=== PATIENT | male | born 1985 | race Caucasian/White ===

== ENCOUNTER 2017-03-19 05:11 | Inpatient (IN) | payer SELFPAY ==
[2017-03-07 11:10] VITALS: BP 142/70; PULSE 62; RESP 17; TEMP 36.6; O2SAT 97; BMI 41.7
[2017-03-07 12:20] LABS: Anion Gap 7 (5-15); BUN 15 mg/dL (7-18); BUN/Creat Ratio 18.6 RATIO (10-20); Calcium,Total 8.9 mg/dL (8.5-10.1); Chloride 106 mmol/L (98-107); Creatinine, Serum 0.81 mg/dL (0.70-1.30); EST Glomerular Filtration Rate 117 mL/min (>60); Est Glom Filt Rate - Afr Amer 141 mL/min (>60); Estimated Creatinine Clearance 117.05 ml/min; Glucose 103 mg/dL (70-110); Potassium 3.8 mmol/L (3.5-5.1); Sodium Level 138 mmol/L (136-145)
[2017-03-07 12:25] LABS: Absolute Lymphocyte Count 1.98 X10^3/ul (0.83-4.51); Absolute Neutrophil Count 3.4 X10^3/uL (2.0-7.7); Basophil# 0.03 X10^3/uL; Basophil% 0.5 % (0-1); Eosinophil# 0.13 X10^3/uL; Eosinophils% 2.2 % (0-5); Hematocrit 42.5 % (40-54); Hemoglobin 14.4 g/dl (13.0-16.5); Lymphocyte # 1.98 X10^3/ul (4.0); Lymphocyte % 33.6 % (19-41); Mean Corp Hgb Conc 33.9 g/gl (32-36); Mean Corpuscular Hgb 29.1 pg (27.0-32.0); Mean Corpuscular Volume 85.9 fL (80-94); Mean Platelet Vol. 9.6 fl (6.2-12.0); Monocyte# 0.37 X10^3/uL; Monocyte% 6.3 % (0-10); Neutrophil # 3.37 X10^3/uL (2.7-7.7); Neutrophil % 57.2 % (47-70); Platelet Count 196 K/mm3 (150-450); RBC Distribution Width CV 12.3 % (11.6-14.6); RBC Distribution Width SD 38.3 fl (35.1-43.9); Red Blood Count 4.95 M/mm3 (4.6-6.2); White Blood Count 5.9 K/mm3 (4.4-11.0)
[2017-03-07 12:27] LABS: POSITIVE COUNT NO; POSITIVE DIFFERENTIAL NO; POSITIVE MORPHOLOGY NO
--- NOTE | 2017-03-07 12:46 | PCM.HP.BLA ---
History and Physical DATE OF SERVICE: 03/19/2017 SCHEDULED PROCEDURE: Right total hip arthroplasty HISTORY OF PRESENT ILLNESS: This is a 31-year-old male who is been having ongoing pain for several year duration in the right hip. Patient was seen over 1 year ago and hip pain has continued and become worse. Pain can reach as high as a 6 out of 10. Pain is constant, aching, sharp, and stabbing. Patient has any pain with any use with forward flexion of the hip. He has difficult time with activities of daily living including putting his shoes and getting dressed due to the pain. Patient does have start up pain. Patient states he has difficult time at work due to the pain. 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 This prevents him from doing activities of daily living. He has tried oral medications with no relief in symptoms. X-rays do show signs of avascular necrosis. Patient has no medical problems. He denies any chest pain, shortness of breath, fevers chills, or recent infections. Patient has had corticosteroid injection into the right hip in September 2016 with no significant relief in symptoms. After failing conservative measures and discussing all treatment options with Dr. Escalante, the patient would like to proceed with a right total hip arthroplasty. Patient will be obtaining surgical clearance from his primary care physician. REVIEW OF SYSTEMS: ROS: Const: Denies change in appetite, fever,or weight change. CV: Denies chest pain, heart murmur and irregular heartbeat. Resp: Denies cough, pneumonia, SOB, tuberculosis and wheezing. GI: Reports heartburn, but denies constipation, diarrhea, difficulty swallowing, nausea, bloody stools and vomiting. : . (F Genital Sx) Urinary: denies incontinence. Musculo: Denies leg swelling, limp, trouble walking and weakness. Skin: Denies Raynaud's, history of shingles and tattoo. Neuro: Denies ambulatory dysfunction, dizziness, numbness/tingling and tremor. Psych: Denies anxiety, insomnia and stress. Sai/Lymph: Denies anemia, bleeding/bruising tendency and past transfusion. Reviewed, no changes. PAST MEDICAL HISTORY: Advance Care Plan: PMH: Medical Problems: No Current Problems Accidents: None Surgical Hx: None Anesthesia Complications: None Assistive Devices: Glasses Reviewed, no changes. SOCIAL HISTORY: SH: Marital: .Occupation: Currently Working - [employer].Work Status: Currently Working.Hand Dominance: Right-handed. Personal Habits: Cigarette Use: Former Cigarette Smoker.Alcohol: Has consumed alcohol in the past.Drug Use: Denies Use.Enjoy Exercising: Daily. Reviewed, no changes. VITALS: Ht: 66.5 Wt: 255lb Wt k.668 BMI: 40.5 BP: 124/76 Pulse: 70 Resp: 16 T: 98.2 T: 36.8C ALLERGIES: No Known Drug Allergy MEDICATIONS: Ibuprofen 600 mg 1 by mouth three times a day PRE-OP EXAM: General appearance:NORMAL Other: Eyes: Conjunctivae and lids: NORMAL Pupils: ERR Ears, Nose, Mouth, and Throat: NORMAL Other: Inspection of lips, teeth and gums: NORMAL Other: Neck: Examination of neck: no masses noted. Respiratory: Assessment of respiratory effort: NORMAL Other: Ausculation of lungs: clear to ausculation no wheeses, ronchi or rales. Cardiovascular: Ausculation of heart: regular rate and rhythem, no mummurs, gallops or rubs. Exam of carotid arteries: NORMAL Other: Gastrointestinal: Exam of abdomen: soft, nontender, nondistended bowel sounds present. Lymphatic: Palpation of nodes in neck: NORMAL Other: Palpation of nodes in Axillae: NORMAL Other: Neurological: see below Psychiatric: Orientation to time, place and person: NORMAL Other: Mood and affect: NORMAL Other: PHYSICAL EXAMINATION: Patient walks with a limping gait. Range of motion is flexion to 45?, internal rotation to 5?, external rotation to 10?. Patient has decreased strength with the right hip. Sensations intact to light touch and neurovascularly intact. IMAGING STUDIES: X-rays were obtained at [facility] [place] on March 07, 2017 including 2 views AP pelvis and AP right hip reveal severe right hip osteoarthritis with narrowing in the weightbearing area. There is large osteophytes on the femoral head and lateral acetabulum. Femoral head appears to be flattened. IMPRESSION: 1. Right hip pain with osteoarthritis and evidence of avascular necrosis PLAN: Dr. Escalante did discuss and review with the patient all treatment options including surgical versus nonsurgical. Patient wishes to proceed with above-stated procedure. Potential risks, benefits, and complications of this procedure were discussed in detail including but not limited to , infection, nerve and blood vessel damage, persistent pain, numbness, tingling, paresthesias, blood clot, pulmonary embolism, and requirement for further surgery. The patient expressed full understanding has no further questions for the doctor. Patient does agree to proceed with the above-stated procedure and has signed the surgery consent form. ___ I have re-examined the patient. There are no clinical changes since date of exam. ___ See progress notes for changes. ___ Dictated on admission Date: Time: Signature:
--- NOTE | 2017-03-07 12:55 | HP.PCM_ITS ---
History and Physical DATE OF SERVICE: 03/19/2017 SCHEDULED PROCEDURE: Right total hip arthroplasty HISTORY OF PRESENT ILLNESS: This is a 31-year-old male who is been having ongoing pain for several year duration in the right hip. Patient was seen over 1 year ago and hip pain has continued and become worse. Pain can reach as high as a 6 out of 10. Pain is constant, aching, sharp, and stabbing. Patient has any pain with any use with forward flexion of the hip. He has difficult time with activities of daily living including putting his shoes and getting dressed due to the pain. Patient does have start up pain. Patient states he has difficult time at work due to the pain. 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 This prevents him from doing activities of daily living. He has tried oral medications with no relief in symptoms. X-rays do show signs of avascular necrosis. Patient has no medical problems. He denies any chest pain, shortness of breath, fevers chills, or recent infections. Patient has had corticosteroid injection into the right hip in September 2016 with no significant relief in symptoms. After failing conservative measures and discussing all treatment options with Dr. Escalante, the patient would like to proceed with a right total hip arthroplasty. Patient will be obtaining surgical clearance from his primary care physician. REVIEW OF SYSTEMS: ROS: Const: Denies change in appetite, fever,or weight change. CV: Denies chest pain, heart murmur and irregular heartbeat. Resp: Denies cough, pneumonia, SOB, tuberculosis and wheezing. GI: Reports heartburn, but denies constipation, diarrhea, difficulty swallowing , nausea, bloody stools and vomiting. : . (F Genital Sx) Urinary: denies incontinence. Musculo: Denies leg swelling, limp, trouble walking and weakness. Skin: Denies Raynaud's, history of shingles and tattoo. Neuro: Denies ambulatory dysfunction, dizziness, numbness/tingling and tremor. Psych: Denies anxiety, insomnia and stress. Sai/Lymph: Denies anemia, bleeding/bruising tendency and past transfusion. Reviewed, no changes. PAST MEDICAL HISTORY: Advance Care Plan: PMH: Medical Problems: No Current Problems Accidents: None Surgical Hx: None Anesthesia Complications: None Assistive Devices: Glasses Reviewed, no changes. SOCIAL HISTORY: SH: Marital: .Occupation: Currently Working - [employer].Work Status: Currently Working.Hand Dominance: Right-handed. Personal Habits: Cigarette Use: Former Cigarette Smoker.Alcohol: Has consumed alcohol in the past.Drug Use: Denies Use.Enjoy Exercising: Daily. Reviewed, no changes. VITALS: Ht: 66.5 Wt: 255lb Wt k.668 BMI: 40.5 BP: 124/76 Pulse: 70 Resp: 16 T: 98.2 T: 36.8C ALLERGIES: No Known Drug Allergy MEDICATIONS: Ibuprofen 600 mg 1 by mouth three times a day PRE-OP EXAM: General appearance:NORMAL Other: Eyes: Conjunctivae and lids: NORMAL Pupils: ERR Ears, Nose, Mouth, and Throat: NORMAL Other: Inspection of lips, teeth and gums: NORMAL Other: Neck: Examination of neck: no masses noted. Respiratory: Assessment of respiratory effort: NORMAL Other: Ausculation of lungs: clear to ausculation no wheeses, ronchi or rales. Cardiovascular: Ausculation of heart: regular rate and rhythem, no mummurs, gallops or rubs. Exam of carotid arteries: NORMAL Other: Gastrointestinal: Exam of abdomen: soft, nontender, nondistended bowel sounds present. Lymphatic: Palpation of nodes in neck: NORMAL Other: Palpation of nodes in Axillae: NORMAL Other: Neurological: see below Psychiatric: Orientation to time, place and person: NORMAL Other: Mood and affect: NORMAL Other: PHYSICAL EXAMINATION: Patient walks with a limping gait. Range of motion is flexion to 45?, internal rotation to 5?, external rotation to 10?. Patient has decreased strength with the right hip. Sensations intact to light touch and neurovascularly intact. IMAGING STUDIES: X-rays were obtained at [facility] [place] on March 07, 2017 including 2 views AP pelvis and AP right hip reveal severe right hip osteoarthritis with narrowing in the weightbearing area. There is large osteophytes on the femoral head and lateral acetabulum. Femoral head appears to be flattened. IMPRESSION: 1. Right hip pain with osteoarthritis and evidence of avascular necrosis PLAN: Dr. Escalante did discuss and review with the patient all treatment options including surgical versus nonsurgical. Patient wishes to proceed with above- stated procedure. Potential risks, benefits, and complications of this procedure were discussed in detail including but not limited to , infection , nerve and blood vessel damage, persistent pain, numbness, tingling, paresthesias, blood clot, pulmonary embolism, and requirement for further surgery. The patient expressed full understanding has no further questions for the doctor. Patient does agree to proceed with the above-stated procedure and has signed the surgery consent form. ___ I have re-examined the patient. There are no clinical changes since date of exam. ___ See progress notes for changes. ___ Dictated on admission Date: Time: Signature:
[2017-03-19] VITALS (10 sets, daily range): BP systolic 100–135; BP diastolic 51–72; PULSE 50–76; RESP 16–18; TEMP 36.1–37.2; O2SAT 96–100; BMI 41.7
[2017-03-19] MEDS: oxyCODONE HCl Cr 10 MG Tablet PO (05:53)
[2017-03-19] MEDS: Celecoxib 200 MG Capsule 400 MG PO (05:53)
[2017-03-19] MEDS: Acetaminophen 500 MG Tablet 1000 MG PO ×3 (05:53→22:28)
[2017-03-19] MEDS: Lactated Ringers 1,000 ML 999 ML IV (06:30)
--- NOTE | 2017-03-19 07:04 | RAD_ITS ---
STUDY: X-RAY - PELVIS AND right HIP REASON FOR EXAM: Male, 31 years old. Total hip replacement. TECHNIQUE: Radiological exam, hip, unilateral, with pelvis when performed; 2 or 3 views. COMPARISON: None. FINDINGS: Postoperative soft tissue changes. There are multiple calcified phleboliths. Normal bilateral iliac wings, sacroiliac joints and visualized sacrum. Normal bilateral superior and inferior pubic rami. Normal pubic symphysis. Normal bilateral ischial tuberosities. Status post right total hip replacement. There is good alignment. RAD/Hip Min 2 Views (Portable) IMPRESSION: Status post right total hip replacement. There is good alignment. Electronically Signed: Biju Kaplan MD at 12:39 EST Tel [phone], Service support ,
[2017-03-19] MEDS: Cefazolin 2 GM in 0.9% Normal Saline 100 ML IV (07:08)
--- NOTE | 2017-03-19 09:50 | RAD_ITS ---
STUDY: X-RAY - PELVIS AND RIGHT HIP REASON FOR EXAM: Male, 31 years old. Right hip replacement. TECHNIQUE: Radiological exam, hip, unilateral, with pelvis when performed; 1 view COMPARISON: None. FINDINGS: Fluoroscopic images provided for right hip replacement. RAD/Hip 1 view with Pelvis IMPRESSION: Status post right hip replacement. There is good alignment. Electronically Signed: Biju Kaplan MD at 12:17 EST Tel [phone], Service support ,
[2017-03-19] MEDS: Scopolamine 1mg/72hr Patch 1 PATCH TD (10:41)
--- NOTE | 2017-03-19 11:29 | OP.PCM_ITS ---
Report of Operation Date of Procedure: 03/19/17 Pre-Operative Diagnosis: Right hip secondary osteoarthritis, overweight Post-Operative Diagnosis: Right hip secondary osteoarthritis, overweight Surgery/Procedure Performed:: Right direct anterior total hip replacement Description of Surgical Findings:: Stable hip with equal leg length director financial planning: Frieda Ren Type of Anesthesia:: Spinal Anesthesiologist: Karl Sheffield Special Medications: 2 g Ancef, 1 g TXA at incision, 1 g TXA closure, 10 mg Decadron, joint cocktail (5 mg Duramorph, 30 mL of 0.5% Ropivicaine, 1000 units of epinephrine, 30 mg of Toradol), a second dose of Ancef was given to half hours after initial incision Specimen's removed: Bony cuts Estimated Blood Loss (mL): 250 Fluids Replaced: 2 L crystalloid Description of Procedure: Components used: 1. Accolade 2 Mk femoral stem size 4 127? 2. Mk trident acetabular shell size 58 mm 3. Mk X3 polyethylene MDM size 46F 4. Mascot Biolox delta 28mm, -4mm femoral head 5. Mascot MDM liner alpha code F Brief history operative indications: 31 yo m who failed conservative measures for their hip osteoarthritis. X-rays were consistent with osteoarthritis including joint space narrowing, osteophyte formation and subchondral cysts. 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 Total hip replacement was discussed with the patient with risks and benefits including but not limited to blood loss, DVTs, PEs, neurovascular damage, dislocation, general risks of anesthesia including loss of life. Patient demonstrated an understanding medical clearance is obtained the patient was consented for surgery. Procedure: On the date of procedure the patient's R hip was marked in the preoperative area. Patient was then taken back to the operating room where anesthesia assumed control of the C-spine and airway and administered anesthetic. Patient was transferred to the operating table and placed in the supine position. The hips were placed at the break of the bed and a sacral bump was placed. The R lower extremity was then prepped out in a sterile fashion using chlorhexidine while the surgeon scrubbed. The PA was vital in the positioning of the patient. Upon reentering the room the R lower extremity was draped in the standard orthopedic fashion and the incision was marked. A timeout was called and everyone agreed upon the side, the site, the procedure be performed, antibody given, and patient's identity. At this time incision was made through skin, subcutaneous tissue, and fat down to fascia. The fascia was then incised and the TFL was retracted laterally. A retractor was placed on the lateral border of the femoral neck. Attention was directed to the inferior portion of the approach and all crossing vessels were identified and appropriately coagulated. A retractor was then placed on the medial portion of the femoral neck. The anterior capsule was then cleared of all soft tissue and then H shaped capsulotomy was made. The retractors were then placed inside the capsule. The femoral neck was identified and a cleanup cut was made. At this time a power corkscrew was used to remove the femoral head. Attention was then turned toward the acetabulum where the soft tissues were appropriately retracted and the acetabulum was sequentially reamed to 57 mm. A 58 mm cup was then selected and impacted into place. Acetabular liner was impacted into place and locking mechanism was verified. The position of the acetabular cup was then verified under live fluoroscopy. Attention was then turned to the femur. Soft tissue releases on the medial and lateral femoral neck were appropriately done, the leg was externally rotated and lateralized. A Jamil retractor was placed medially and proximally to the greater trochanter this allowed appropriate visualization and exposure of the femoral canal. Rongeour was then used to remove excess lateral bone. A canal finder and entry broach were used to open the proximal canal. Once we verified we were down the femoral canal we subsequently broached up to a size 4 femur. The appropriate neck was placed in the previously selected head was trialed with a -5 mm neck. Traction was pulled and the hip was reduced with internal rotation. Once it was appropriately reduced and stability was checked. There was minimal shuck however, at this time patient had slight increase in right lower extremity length compared to the left as well as instability with hyperextension. At this time the hip was dislocated trial femoral neck was removed femoral component was further broached. We also remove the acetabular liner and repositioned the acetabulum using live fluoroscopy to obtain the appropriate position. Initially 2 screws were placed however we obtained good fixation and no additional screws are placed after removing them to change the position of the cup. Once we did this and MDM liner was then selected for stability. MDM liner was then placed and appropriately seated. Trial components were then placed once more with a -4 MDM femoral head. Fluoroscopy was then also used to verify the position of the components and leg lengths using the contralateral side for comparison. The trial components were then dislocated the proximal femur was again exposed and the components were removed from the wound. The final components were verified and opened. The wound was copiously irrigated out with normal saline. The acetabulum was checked for any residual debris. The final components were placed and impacted. Traction and internal rotation were again used to reduce the hip. After adequate reduction the hip remained stable with appropriate leg lengths. The final components were once again checked with live fluoroscopy and were found to be satisfactory. The wound was then copiously irrigated with normal saline once more, and hemostasis was obtained. Closure was then done using #1 Vicryl runner to close the fascia. A 2-0 vicryl interuppted sutures were used to close the subcutaneous skin. A 3-0 Monocryl and Steri-Strips were used for final skin closure. A Silverlon dressing was placed. Patient was awakened by anesthesia and transferred to the [facility]. Patient was then transferred to the PACU for recovery. Postoperative plan: Patient will get 24 hours postop antibiotics. Patient will get in-house physical therapy and will be weight-bear as tolerated. Patient will follow up in office in 2 weeks for a wound check and x-rays. Grafts/Implants Used: Mascot accolade 2, MDM liner - Complications none - Admit VTE Documentation VTE Present on Admission: No VTE Mechan Device Prophylaxis: SCD's, Thigh High MEG Hose VTE Pharm Prophylaxis ordered?: Yes
[2017-03-19] MEDS: Lactated Ringers 1,000 ML 125 ML IV ×2 (12:34→16:10)
[2017-03-19] MEDS: Famotidine 20 MG Tablet PO (12:34)
[2017-03-19] MEDS: Senna/Docusate Sodium 1 Tablet 2 TABLET PO ×2 (12:34→22:29)
[2017-03-19] MEDS: oxyCODONE 5 MG Tablet PO ×3 (13:27→22:32)
[2017-03-19] MEDS: Cefazolin 1 GM/50 ML BAG IV ×2 (16:03→22:28)
[2017-03-19] MEDS: Aspirin 325 MG Tablet PO (16:08)
[2017-03-19] MEDS: Ketorolac 15 MG/ML Vial IV (18:03)
[2017-03-20 02:39] VITALS: BP 126/61; PULSE 66; RESP 16; TEMP 36.8; O2SAT 98
[2017-03-20] MEDS: Acetaminophen 500 MG Tablet 1000 MG PO ×2 (06:20→13:53)
[2017-03-20 06:38] LABS: Hemoglobin 9.8 g/dl (13.0-16.5); Mean Corpuscular Hgb 29.8 pg (27.0-32.0); Mean Corpuscular Volume 85.1 fL (80-94); Mean Platelet Vol. 10.1 fl (6.2-12.0); Platelet Count 177 K/mm3 (150-450); RBC Distribution Width CV 12.2 % (11.6-14.6); RBC Distribution Width SD 36.3 fl (35.1-43.9); Red Blood Count 3.29 M/mm3 (4.6-6.2)
[2017-03-20 06:46] LABS: Scan Indicated on CBC? Y/N NO
[2017-03-20 07:12] LABS: Anion Gap 9 (5-15); BUN 15 mg/dL (7-18); BUN/Creat Ratio 18.6 RATIO (10-20); Calcium,Total 8.2 mg/dL (8.5-10.1); Chloride 107 mmol/L (98-107); EST Glomerular Filtration Rate 117 mL/min (>60); Est Glom Filt Rate - Afr Amer 142 mL/min (>60); Estimated Creatinine Clearance 118.52 ml/min; Glucose 137 mg/dL (70-110); Sodium Level 139 mmol/L (136-145)
[2017-03-20 07:31] VITALS: BP 117/55; PULSE 59; RESP 16; TEMP 37.1; O2SAT 100
[2017-03-20] MEDS: Famotidine 20 MG Tablet PO (07:37)
[2017-03-20] MEDS: Senna/Docusate Sodium 1 Tablet 2 TABLET PO (07:37)
[2017-03-20] MEDS: Aspirin 325 MG Tablet PO (07:37)
--- NOTE | 2017-03-20 11:14 | PCM.PN.ORT ---
Subjective: The patient was sitting in bed upon examination. Patient denies any chest pain, shortness of breath, dizziness, lightheadedness, nausea or vomiting, or calf pain. Pain is controlled on medications. No adverse overnight events. Patient states he is feeling well and has tolerated therapy and walking. Patient is wishing to go home today. Objective: Vital signs stable and afebrile. Patient is able to plantarflex and dorsiflex actively. Sensation is intact to light touch to saphenous, sural, superficial and deep peroneal, and tibial distribution. Dressing is clean dry and intact. Negative Homans bilaterally, negative signs and symptoms of DVT. - Physical Exam General: Alert, Oriented x3, Cooperative, No apparent distress Vital Signs Temp Pulse Resp BP Pulse Ox 98.7 F 59 L 16 117/55 L 100 03/20/17 07:31 03/20/17 07:31 03/20/17 07:31 03/20/17 07:31 03/20/17 07:31 Oxygen Flow Rate 2 Oxygen Delivery Method Room Air Weight: 117.3 kg Body Mass Index (BMI) 41.7 Intake and Output for Last 24 Hours 03/18/17 03/19/17 03/20/17 23:59 23:59 23:59 Intake Total 3955 / 3955 2105 / 2105 Output Total 700 / 700 2150 / 2150 Balance 3255 / 3255 -45 / -45 Laboratory Tests Past 24 Hrs 03/20/17 03/20/17 05:42 05:42 WBC 11.0 RBC 3.29 L Hgb 9.8 L Hct 28.0 L MCV 85.1 MCH 29.8 MCHC 35.0 RDW 12.2 RDW Differential 36.3 Plt Count 177 MPV 10.1 Sodium 139 Potassium 4.0 Chloride 107 Carbon Dioxide 23.0 Anion Gap 9 BUN 15 Creatinine 0.80 Estim Creat Clear Calc 118.52 Est GFR (MDRD) Af Amer 142 Est GFR (MDRD) Non-Af 117 BUN/Creatinine Ratio 18.6 Glucose 137 H Calcium 8.2 L Assessment/Plan 1. S/P right total hip arthroplasty POD #1 2. Continue Pain Medications: Tylenol and OxyIR 3. DVT Prophylaxis: Aspirin 325 mg twice daily 4. PT/OT: Weightbearing as tolerated 5. H & H: 9.8/28.0, asymptomatic 6. Encouraged Incentive Spirometry 7. Disposition: Orthopedically stable, plan will be for discharge home today. Prescriptions will be E scribed to [facility]. Patient will follow-up per postop instructions.
--- NOTE | 2017-03-20 11:17 | PN.ORTHO_ITS ---
Subjective: The patient was sitting in bed upon examination. Patient denies any chest pain , shortness of breath, dizziness, lightheadedness, nausea or vomiting, or calf pain. Pain is controlled on medications. No adverse overnight events. Patient states he is feeling well and has tolerated therapy and walking. Patient is wishing to go home today. Objective: Vital signs stable and afebrile. Patient is able to plantarflex and dorsiflex actively. Sensation is intact to light touch to saphenous, sural, superficial and deep peroneal, and tibial distribution. Dressing is clean dry and intact. Negative Homans bilaterally, negative signs and symptoms of DVT. - Physical Exam General: Alert, Oriented x3, Cooperative, No apparent distress Vital Signs Temp Pulse Resp BP Pulse Ox 98.7 F 59 L 16 117/55 L 100 03/20/17 07:31 03/20/17 07:31 03/20/17 07:31 03/20/17 07:31 03/20/17 07:31 Oxygen Flow Rate 2 Oxygen Delivery Method Room Air Weight: 117.3 kg Body Mass Index (BMI) 41.7 Intake and Output for Last 24 Hours 03/18/17 03/19/17 03/20/17 23:59 23:59 23:59 Intake Total 3955 / 3955 2105 / 2105 Output Total 700 / 700 2150 / 2150 Balance 3255 / 3255 -45 / -45 Laboratory Tests Past 24 Hrs 03/20/17 03/20/17 05:42 05:42 WBC 11.0 RBC 3.29 L Hgb 9.8 L Hct 28.0 L MCV 85.1 MCH 29.8 MCHC 35.0 RDW 12.2 RDW Differential 36.3 Plt Count 177 MPV 10.1 Sodium 139 Potassium 4.0 Chloride 107 Carbon Dioxide 23.0 Anion Gap 9 BUN 15 Creatinine 0.80 Estim Creat Clear Calc 118.52 Est GFR (MDRD) Af Amer 142 Est GFR (MDRD) Non-Af 117 BUN/Creatinine Ratio 18.6 Glucose 137 H Calcium 8.2 L Assessment/Plan 1. S/P right total hip arthroplasty POD #1 2. Continue Pain Medications: Tylenol and OxyIR 3. DVT Prophylaxis: Aspirin 325 mg twice daily 4. PT/OT: Weightbearing as tolerated 5. H & H: 9.8/28.0, asymptomatic 6. Encouraged Incentive Spirometry 7. Disposition: Orthopedically stable, plan will be for discharge home today. Prescriptions will be E scribed to [facility]. Patient will follow-up per postop instructions.
--- NOTE | 2017-03-20 11:23 | PCM.DC.THR ---
Discharge Diet: No Restrictions Discharge Activity: May Not Drive - while taking narcotic pain medications. May shower in (days): 1 - Turned dressing away from water Weight Bearing Status: Weight bearing as tolerated Additional Activity Instructions:: Wear elastic stockings for 2 weeks. DO NOT use alcohol with narcotic pain medication. DO NOT make important decisions while taking narcotic medication. If you have problems with taking your medication (rash, itching, nausea, etc.) call the office at once. Call your doctor if your incision/area has: Increased Pain/ Swelling, Increased Redness, Foul Smelling Discharge Call your doctor if you observe: Fever of 101 or Higher Remove Dressing in (days):: 4 - Okay to remove dressing on March 24, 2017 Additional Instructions: Follow [facility] postop instructions Allergies/Adverse Reactions: Allergies No Known Allergies Allergy (Verified 03/07/17 11:07) Medications to take at Discharge Acetaminophen [Tylenol] 1,000 mg PO Q8 #90 tab 03/20/17 Aspirin 325 mg PO BIDCM #30 tab 03/20/17 Famotidine [Pepcid] 20 mg PO DAILY #30 tab 03/20/17 Oxycodone [Oxyir] 5 - 10 mg PO Q4H PRN PRN #80 tablet 03/20/17 Senna/Docusate Sodium [Senokot-S] 2 tab PO BID #20 tab 03/20/17 The following prescriptions were given: Oxycodone [Oxyir] 5 - 10 mg PO Q4H PRN PRN #80 tablet PRN Reason: Mod-Severe Pain (4-10/10) Acetaminophen [Tylenol] 1,000 mg PO Q8 #90 tab Famotidine [Pepcid] 20 mg PO DAILY #30 tab Aspirin 325 mg PO BIDCM #30 tab Senna/Docusate Sodium [Senokot-S] 2 tab PO BID #20 tab Primary Care Physician: Solange Sanz MD [Primary Care Provider] - Please Follow Up With: [facility] When: 03/24/17 @ 11:00 am Please Follow Up With: Beau Lewis PA-C When: 04/02/17 @ 11:00 am
--- NOTE | 2017-03-20 12:02 | CASEMGMT ---
MELISSA ABURTO Face to Face with patient for initial transition planning/care coordination assessment. RN CM introduced self and role at [facility]. Patient sitting in chair, alert and oriented, in room. Patient willing to participate in assessment and is able to answer all questions appropriately. Care providers, pharmacy, and demographics verified. See link attached. Patient wishes to discharge home and has [facility] setup to see patient on Friday for therapy at home. RN CRISELDA called [facility] and spoke with Trish who stated they are scheduled to see patient and requested discharge instructions be faxed to them. RN CM will fax discharge instructions when completed to [facility]. RN CM update patient and regarding [facility] scheduled to see patient at home on Friday03/24/17. Pt states he has no further needs or concerns at this time. CM to follow for discharge planning needs that may arise. Disposition Plan: Patient to discharge home with home therapy, family support, and follow-up plans in place.
[2017-03-20 13:34] VITALS: BP 124/60; PULSE 71; RESP 16; TEMP 36.8; O2SAT 99
== END 2017-03-20 16:02 | disposition home or self-care (01) | DRG 470 ==
LOC: ACINP 05:14 → MS3 05:30
PROVIDERS: Admitting Provider Specialist; Family Provider Family Medicine; PCP Family Medicine; Visit Provider Specialist
PROC: 0SR904A Replacement of Right Hip Joint with Ceramic on Polyethylene Synthetic Substitute, Uncemented, Open Approach (ICD-10-PCS; CPT 27284; principal; 2017-03-19 06:50)
DX: M16.7 Other unilateral secondary osteoarthritis of hip (principal); Z68.41 Body mass index [BMI] 40.0-44.9, adult; E66.3 Overweight
CPT/HCPCS: 36415; 73501; 73502; 76000; 80048; 85025; 85027; 87077; 87081; 97110; 97116; 97162; 97165; 97530; 97535; 99251; J7120; A4216; G0463